=== PATIENT | female | born 1985 | race African-American/Black ===

== ENCOUNTER 2018-03-14 22:45 | Emergency (ER) | payer OTHER ==
[~2018-03-14] VITALS: Ht 170.2 cm; Wt 71.3 kg
[2018-03-14 22:49] VITALS: BP 140/100
== END 2018-03-15 01:05 | disposition left against medical advice (07) ==
LOC: EME 22:45
DX: R51 Headache (principal); R42 Dizziness and giddiness; R11.10 Vomiting, unspecified; Z53.21 Procedure and treatment not carried out due to patient leaving prior to being seen by health care provider